=== PATIENT | female | born 1950 | race Caucasian/White ===

== ENCOUNTER → 2017-10-22 | Outpatient (CLI) | payer MEDICARE ==
--- NOTE | 2017-10-22 11:11 | US ---
EXAMINATION TYPE: US liver DATE OF EXAM: 10/22/2017 COMPARISON: NONE CLINICAL HISTORY: R94.5 ABN LIVER FUNCTIONS. Abnormal labs. No pain. 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 No khurram picious abnormality. No hydronephrosis or nephrolithiasis. IMPRESSION: Despite serum transaminitis there is no sonographic sequela of hepatocellular disease/hep atic steatosis. No focal hepatic lesions are seen.
[2017-10-22 18:12] LABS: Hepatitis A Antibody IgM Non-Reactive (Non-Reactive); Hepatitis B Core IgM Non-Reactive (Non-Reactive)
== END | disposition home or self-care (01) ==
LOC: RADUSWWP 08:53
PROVIDERS: ATTEND Internal Medicine Geriatric Medicine
DX: R94.5 Abnormal results of liver function studies (principal)
CPT/HCPCS: 36415; 76705; 80074

== ENCOUNTER → 2023-01-22 | Outpatient (CLI) | payer MEDICARE ==
--- NOTE | 2023-01-22 13:24 | CT ---
EXAMINATION TYPE: CT facial bones w con DATE OF EXAM: 01/22/2023 COMPARISON: None HISTORY: 72-year-old female right salivary gland stone, bb placed over area TECHNIQUE: Contiguous axial scanning of the facial bones performed with IV Contrast, patient injected with 100 mL of Isovue 300. Coronal/sagittal reconstructions performed. CT DLP: 575.3 mGycm Automated exposure control for dose reduction was used. FINDINGS: Visualized intracranial structures as well as orbits and globes show no gross abnormal body. Mastoid air cells and middle ear cavities are well pneumatized. The frontal, sphenoid, ethmoid, and maxillary sinuses are well-pneumatized. No air-fluid level. No reactive cheryl-osteogenesis or osseous destruction of the sinus dumont There is a palpable marker placed over the right parotid tail. There is an underlying heterogeneous, intensely enhancing, hypervascular mass within the right parotid tail measuring 2.9 x 2.3 x 2.0 cm. Nonspecific small calcification along the anterior margin measures 7 mm. The remainder of the submandibular and parotid glands appear satisfactory. No upper cervical lymphadenopathy identified. Numerous rounded lucencies throughout the visualized cervical spine, for example, refer to sagittal i mage 35 and 40. IMPRESSION: 1. LARGE HYPERVASCULAR MASS OF THE RIGHT PAROTID TAIL AT THE PATIENT'S PALPABLE SITE MEASURING 2.9 X 2.3 X 2.0 CM. 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 LESS LIKELY NERVE SHEATH TUMOR. ENT REFERRAL RECOMMENDED. 2. SMALL ROUND LUCENCIES THROUGHOUT THE VISUALIZED CERVICAL SPINE MAY BE DUE TO DEMINERALIZATION/OSTE OPENIA. RECOMMEND FURTHER LABORATORY ASSESSMENT TO EXCLUDE THE POSSIBILITY OF MULTIPLE MYELOMA. CORRE LATE FOR ANY KNOWN UNDERLYING PRIMARY TO EXCLUDE THE POSSIBILITY OF OSSEOUS METASTASES.
== END | disposition home or self-care (01) ==
LOC: RADCTMAIN 10:29
PROVIDERS: ATTEND Internal Medicine Geriatric Medicine
DX: K11.5 Sialolithiasis (principal); K11.8 Other diseases of salivary glands; M89.8X8 Other specified disorders of bone, other site
CPT/HCPCS: 70487; Q9967

== ENCOUNTER → 2023-03-20 | Outpatient (CLI) | payer MEDICARE ==
--- NOTE | 2023-03-30 07:58 | MR ---
EXAMINATION TYPE: MR neck wo/w con DATE OF EXAM: 03/20/2023 2:55 PM CLINICAL INDICATION:Female, 72 years old with history of K11.8 PAROTID MASS; PHH, Right parotid mass. COMPARISON: None. TECHNIQUE: Multi planar, multi sequence imaging was performed of the neck soft tissues. MR contrast: IV Contrast: 7 cc Gadobutrol FINDINGS: The right parotid gland demonstrates high T2 and low T1 signal mass measuring 26 x 20 x 26 mm. This is in the inferior aspect of the superficial parotid gland. There is homogenous postcontras t enhancement. The left parotid gland is without evidence for lesion. Mild mucosal thickening of the left inferior nasal turbinate. Left aphakia. The glottis appears unremarkable. Several nonenlarged anterior chain lymph nodes are identified. The cervical vertebral bodies have preserved heights and alignment. Multilevel disc desiccation and anterior osteophytosis are present. The cervical spinal cord demonstrates a normal appearance. IMPRESSION: 1. 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 Other salivary gland tumors remain in the differential tissue sampling recommended for definit abdiaziz diagnosis. 2. 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
== END | disposition home or self-care (01) ==
LOC: RADMRIMAIN 13:42
PROVIDERS: ATTEND Otolaryngology
DX: K11.8 Other diseases of salivary glands (principal); M50.30 Other cervical disc degeneration, unspecified cervical region; M47.812 Spondylosis without myelopathy or radiculopathy, cervical region
CPT/HCPCS: 70543; A9585